=== PATIENT | female | born 1955 | race Caucasian/White ===

== ENCOUNTER 2023-02-04 14:39 | Outpatient (CLI) | payer MEDICARE, OTHER, SELFPAY ==
--- NOTE | 2023-02-04 14:47 | MR_ITS ---
WS: [id number] MRI LUMBAR SPINE NONCONTRAST HISTORY: LUMBAR BACK PAIN WITH RADICULOPATHY AFFECTING THE LEFT LEG COMPARISON: None available. TECHNIQUE: Sagittal and axial multisequence imaging is submitted. Moderate increase in thoracic kyphosis. Normal lumbar alignment with no compression fractures or marrow edema. Mild disc desiccation and narrowing throughout the lumbar spine, most significant at L5-S1. No fractu re. Conus terminates normally at L1. L1-L2: Mild annular disc bulging. No stenosis. L2-L3: Mild annular disc bulge. Annular fissure centrally. Mild ligamentum flavum and facet arthritis . L3-L4: Mild annular disc bulge with encroachment upon the subarticular recesses. Mild bilateral camryn inal narrowing. L4-L5: Moderate ligamentum flavum and mild facet arthritis. Facet cyst on the LEFT. There is very mil d encroachment centrally upon the thecal sac by facet disease. Mild central and bilateral subarticula r recess and foraminal stenosis. L5-S1: Mild annular disc bulge with a moderate central disc protrusion. Mild encroachment upon the ve ntral thecal sac. There is mild disc contact on the traversing RIGHT S1 nerve root. Mild facet and li gamentum flavum disease. Bilateral renal cysts. MR/MR lumbar spine wo con* [id number] IMPRESSION: 1. Moderate central disc protrusion at L5-S1 with disc contacting the traversi ng RIGHT S1 nerve root. 2. Mild disc encroachment upon the subarticular recesses and mild foraminal na rrowing at L3-4. 3. Mild central, bilateral subarticular recess and foraminal stenosis at L4-5.
== END 2023-02-04 14:40 | disposition home or self-care (01) ==
PROVIDERS: PCP Internal Medicine; Visit Provider Internal Medicine
DX: M54.16 Radiculopathy, lumbar region (principal); M48.061 Spinal stenosis, lumbar region without neurogenic claudication; M51.27 Other intervertebral disc displacement, lumbosacral region
CPT/HCPCS: 72148

== ENCOUNTER → 2023-02-20 15:27 | Outpatient (BNVA) | payer MEDICARE, OTHER, SELFPAY | PROVIDERS: PCP Internal Medicine; Referring Provider Internal Medicine; Visit Provider Orthopaedic Surgery | DX: M48.062 Spinal stenosis, lumbar region with neurogenic claudication (principal); M51.26 Other intervertebral disc displacement, lumbar region | CPT/HCPCS: 72110; 99204 ==

== ENCOUNTER 2023-02-28 13:17 | Outpatient (CLI) | payer MEDICARE, OTHER, SELFPAY | END 2023-02-28 13:18 | disposition home or self-care (01) | LOC: RT 03-19 13:20 | PROVIDERS: PCP Internal Medicine; Visit Provider Orthopaedic Surgery | DX: Z01.818 Encounter for other preprocedural examination (principal) | CPT/HCPCS: 93005 ==

== ENCOUNTER 2023-03-07 09:03 | Day surgery (SDC) | payer MEDICARE, OTHER, SELFPAY ==
[2023-02-28 09:33] VITALS: BMI 24.3
--- NOTE | 2023-02-28 09:42 | ECG_ITS ---
[facility] Test Date: 2023-02-28 Pat Name: Martita Spencer Department: Room: Gender: Female Analytics Consultant: : 1955 Requested By: Hortencia Kapoor Order Number: [id number] Tyra MD: Lizzy Mcmillan M.D. Measurements Intervals [place] Rate: 57 P: 73 [place]: 131 QRS: 25 QRSD: 86 T: 50 QT: 416 QTc: 406 Interpretive Statements SINUS BRADYCARDIA SEPTAL MYOCARDIAL INFARCTION [40+ ms Q WAVE IN V1/V2], PROBABLY OLD MODERATE T-WAVE ABNORMALITY, CONSIDER LATERAL ISCHEMIA [-0.1+ mV T WAVE IN I/aVL/V5/V6] INTERPRETATION BASED ON A DEFAULT AGE OF 40 YEARS No previous ECG available for comparison Electronically Signed On 02-28-2023 22:22:02 CDT by Lizzy Mcmillan M.D. [id number]
--- NOTE | 2023-02-28 09:51 | ANES.PREANE2 ---
Pre-Anesthetic Assessment Height/Weight: Height 1.57 m Weight 60.328 kg Operation Date: 03/07/23 13:00 Proposed Procedures p Lumbar Spine Decompression:L4/5 L5/S1 decompression w discetomy at L5/S1, 51986,94919,24098,M48.062.(Not Applicable) - Galen Leung DO s Discectomy: L5/S1 36295(Not Applicable) - Galen Leung DO Familial anesthetic complications: None Social Tobacco and No alcohol Exam alert, oriented x 3, clear to auscultation bilaterally and regular rate & rhythm Airway Mallampati: Class II Dentition: other (plate) Pulmonary None reported CV/HEM Coronary Artery Disease (stent > 1 year ago on plavix still), Hypertension, Myocardial Infarction and Peripheral Vascular Disease None reported Hepatic None reported GI Gastroesophageal Reflux Disease Metabolic Hyperlipidemia Musc/skel Lower Back Pain Neuropsych None reported Anesthetic Plan ASA status: 3 Anesthesia: General Risk of > 500 ml blood loss (7ml/kg in children): No Medications/Allergies Home Medications Medication Instructions Recorded Confirmed Last Taken Type aspirin 81 mg capsule 81 mg PO DAILY 02/20/23 02/28/23 02/27/23 History clopidogrel 75 mg tablet (Plavix) 75 mg PO DAILY 02/20/23 02/28/23 02/27/23 History albuterol sulfate 90 mcg/actuation 1 inh inhalation QID PRN Shortness 02/28/23 02/28/23 Unknown History aerosol inhaler Of Breath citalopram 40 mg tablet 20 mg PO DAILY 02/28/23 02/28/23 02/28/23 History hydrocodone 5 mg-acetaminophen 325 1 tab PO Q6H PRN Pain 02/28/23 02/28/23 02/28/23 History mg tablet labetalol 200 mg tablet 200 mg PO DAILY 02/28/23 02/28/23 02/28/23 History omeprazole 20 mg capsule,delayed 20 mg PO DAILY 02/28/23 02/28/23 02/28/23 History release rosuvastatin 40 mg tablet 40 mg PO DAILY 02/28/23 02/28/23 02/27/23 History zolpidem 10 mg tablet 10 mg PO DAILY 02/28/23 02/28/23 02/27/23 History Allergies Allergy/AdvReac Type Severity Reaction Status Date / Time Penicillins Allergy Intermediate ALGY-Hives Verified 02/20/23 15:54 trazodone Allergy ALGY-Hives Verified 02/20/23 15:54 Data Anesthesia 02/28/23 09:44 Cardiac Studies: No Data to Display
[2023-02-28 09:52] LABS: Basophils % 0.4 %; Eosinophils # 0.2 10^3/uL (0.0-0.8); Eosinophils % 3.2 %; Hematocrit 28.6 % (37.0-47.0); Hemoglobin 8.2 g/dL (11.5-15.3); Lymphocytes # 1.1 10^3/uL (0.8-4.8); Lymphocytes % 21.9 %; Mean Corpuscular HGB Conc 28.7 g/dL (30.0-36.0); Mean Corpuscular Hemoglobin 26.8 pg (28.0-34.0); Mean Corpuscular Volume 93.5 fl (81-99); Mean Platelet Volume 10.7 fL (7.4-10.4); Monocytes # 0.3 10^3/uL (0.2-0.9); Monocytes % 6.1 %; Neutrophils # 3.35 10^3/uL (1.8-7.7); Nucleated Red Blood Cells % 0 %; Platelet Count 189 10^3/cmm (130-400); Red Blood Count 3.06 10^6/uL (4.1-5.3); Red Cell Distribution Width 14.8 % (12.1-15.1); White Blood Count 4.9 10^3/uL (4.0-10.0)
[2023-03-07] VITALS (10 sets, daily range): BP systolic 113–182; BP diastolic 37–72; PULSE 63–81; RESP 16–18; TEMP 36.3–37.1; O2SAT 95–100
--- NOTE | 2023-03-07 09:53 | P.ANESUD_ITS ---
Pre-Anesthetic Update Pre-Anesthetic Assessment: Date of Surgery/Procedure: 03/07/23 Preop Ingrid gnosis: Lumbar stenosis, herniated nucleus pulposus L5-S1 Proposed Procedure: Operation Date: 03/07/23 10:30 Proposed Procedures p Lumbar Spine Decompression:L4/5 L5/S1 decompression w microdiscectomy at L5/S1, 34226,18011,23288,M48.062.(Left) - Galen Leung, DO s Discectomy: L5/S1 31884(Left) - Galennick Leung, DO Any changes to Pre-Anesthetic Assessment?: No Last Intake: Intake Last Liquid Date 03/07/23 Last Liquid Time 06:00 Last Solid Date 03/06/23 Last Solid Time 18:00 Vitals: Temperature 97.4 F L 03/07/23 09:21 Pulse Rate 63 03/07/23 09:21 Respiratory Rate 18 03/07/23 09:21 Blood Pressure 113/57 03/07/23 09:21 Blood Pressure Isabelle n 75 03/07/23 09:21 Pulse Oximetry 95 03/07/23 09:21 Oxygen Delivery Me thod Room Air 03/07/23 09:22 Exam: Pre-Anes Outpt Exam: alert, oriented x 3, clear to auscultation bilaterally and regular rate & rhythm Cardiac Studies: No Data to Display
[2023-03-07] MEDS: sodium chloride 0.9% 1,000 ML 30 ML IV (10:06)
--- NOTE | 2023-03-07 11:00 | W.PM.OPSUD ---
Surgery/Procedure H&P Update DATE OF PROCEDURE: March 07, 2023 DATE H&P PERFORMED: 02/20/23 H&P UPDATE INFORMATION: I have reviewed H&P completed within last 30 days, I have examined patient prior to procedure and No changes to prior documentation PREOP DIAGNOSIS: Lumbar stenosis, herniated nucleus pulposus L5-S1 PLANNED PROCEDURE: Operation Date: 03/07/23 10:30 Proposed Procedures p Lumbar Spine Decompression:L4/5 L5/S1 decompression w microdiscectomy at L5/S1, 31391,55987,90739,M48.062.(Left) - Galen Leung DO s Discectomy: L5/S1 10767(Left) - Galen Leung DO
[2023-03-07] MEDS: clindamycin 600 MG/50 ML PREMIX 100 MG IV (11:29)
[2023-03-07] MEDS: lidocaine-epi 1% 20 mL INJ 10 ML INJECTION (11:52)
--- NOTE | 2023-03-07 12:44 | XR_ITS ---
WS: [id number] Exam: XR lumbar spine 2-3V* [id number] Date/Time of Exam: 03/07/2023 12:44 PM Reason For Exam: OR PICS Limited anterior-posterior C-arm image of the lower spine is obtained for localization purposes.
--- NOTE | 2023-03-07 13:28 | P.OP_ITS ---
Operative Report Date of procedure: March 07, 2023 Pre-op diagnosis: Preop Diagnosis Lumbar stenosis with neurogenic claudication , herniated nucleus pulposus L5- S1 Post-op diagnosis: same Procedure done: 1. L4/5 laminectomy with partial facetectomy 2. L5/S1 laminectomy with partial facetectomy and diskectomy Surgeon: Galen Leung Cathode Builder: Robb Reis Estimated blood loss (mL): 25 Procedure: 1. L4/5 laminectomy with partial facetectomy 2. L5/S1 laminectomy with partial facetectomy and diskectomy Patient is brought to the operative suite. After undergoing anesthesia they are placed in the prone position. All areas of impingement are well padded. Patient is then prepped and draped in the normal sterile fashion. A skin incision is made over the L4/5 level. This is confirmed under c-arm guidance. A series of dilators are passed and the tubular retractor is docked on the L4 lamina. A bovie is used to clear the soft tissue off the lamina and the L 4/5 facet joint. A high speed don is then used to perform the laminectomy and take down the medial aspect of the L 4/5 facet joint. A kerrison rongeure was then used to take down the remaining lamina and smooth the edge of the laminectomy up to the point where the ligamentum flavum attaches. Attention was then brought to the medial aspect of the facet joint. The remaining medial aspect of the superior and inferior aspect of the facet joint were taken down with the kerrison from the pedicle of L4 to L 5. The facet joint had significant hypertrophy. Attention was then brought to the Ligamentum Flavum. The ligament was taken down from the lamina of L4 to L5 and out medially to the remaining facet joint. The ligament was thick. The dura was then exposed. The dura was in good repair. The L4 nerve was then traced with a curette out the L4/5 foramen and found to be adequately decompressed. The L5 nerve was traced with a curette around the L5 pedicle. The lateral recess was opened with a kerrison helping to further decompress the L5 nerve. Wound is then irrigated copiously with saline and surgiflo is used to stop any bleeding. The tubular retractor is removed and the A skin incision is made over the L5/S1 level. This is confirmed under c-arm guidance. A series of dilators are passed and the tubular retractor is docked on the L5 lamina. A bovie is used to clear the soft tissue off the lamina and the L 5/S1 facet joint. A high speed don is then used to perform the laminectomy and take down the medial aspect of the L 5/S1 facet joint. A kerrison rongeure was then used to take down the remaining lamina and smooth the edge of the laminectomy up to the point where the ligamentum flavum attaches. Attention was then brought to the medial aspect of the facet joint. The remaining medial aspect of the superior and inferior aspect of the facet joint were taken down with the kerrison from the pedicle of L5 to S1 able to. The facet joint had significant hypertrophy. Attention was then brought to the Ligamentum Flavum. The ligament was taken down from the lamina of L5 to S1 and out medially to the remaining facet joint. The ligament was thick. The dura was then exposed. The dura was in good repair. The L5 nerve was then traced with a curette out the L5/S1 foramen and found to be adequately decompressed. The S1 nerve was traced with a curette around the S1 pedicle. The lateral recess was opened with a kerrison helping to further decompress the S1 nerve. Wound is then irrigated copiously with saline and surgiflo is used to stop any bleeding. The tubular retractor is removed and the wound is closed with vicryl and monocryl suture. Glue is then used to protect the wound. A sterile dressing is then placed. Patient was then placed in the supine position and transferred to the PACU in stable condition.
[2023-03-07] MEDS: HYDROcodone-acetaminophen 5-325 mg Tablet 1 TAB PO (13:42)
--- NOTE | 2023-03-07 15:14 | ANE.PACU2 ---
Inpatient post-anesthesia follow up: Airway intact: Yes Vital signs: Temperature 98.7 F Pulse Rate 76 Respiratory Rate 16 Blood Pressure 150/51 Pulse Oximetry 96 Oxygen Delivery Me thod Room Air Oxygen Flow Rate 8 Fraction of Inspir ed Oxygen Hydration adequate: Yes Nausea and vomiting: No Pain level: 3 Mental status: Baseline
== END 2023-03-07 14:18 | disposition home or self-care (01) ==
PROVIDERS: Anesthesiology; PCP Internal Medicine; Visit Provider Orthopaedic Surgery
PROC: (CPT 63005; principal; 2023-03-07 10:20)
PROC: (CPT 63030; 2023-03-07 10:20)
DX: M48.062 Spinal stenosis, lumbar region with neurogenic claudication (principal); I25.10 Atherosclerotic heart disease of native coronary artery without angina pectoris; I10 Essential (primary) hypertension; E78.5 Hyperlipidemia, unspecified; I73.9 Peripheral vascular disease, unspecified; K21.9 Gastro-esophageal reflux disease without esophagitis; Z79.02 Long term (current) use of antithrombotics/antiplatelets; Z79.82 Long term (current) use of aspirin; Z79.899 Other long term (current) drug therapy; Z95.5 Presence of coronary angioplasty implant and graft; Z88.0 Allergy status to penicillin
CPT/HCPCS: 63030; 63047; 36415; 72020; 72100; 76000; 85025; J0330; J1100; J2405; J2704; J2710; J3010; J3490; J7030

== ENCOUNTER → 2023-03-25 11:09 | Outpatient (BNVA) | payer MEDICARE, OTHER, SELFPAY | PROVIDERS: PCP Internal Medicine; Visit Provider Orthopaedic Surgery | DX: Z47.89 Encounter for other orthopedic aftercare (principal) | CPT/HCPCS: 99024 ==

== ENCOUNTER → 2023-04-22 11:07 | Outpatient (BNVA) | payer MEDICARE, OTHER, SELFPAY | PROVIDERS: PCP Internal Medicine; Visit Provider Orthopaedic Surgery | DX: Z48.89 Encounter for other specified surgical aftercare (principal) | CPT/HCPCS: 99024 ==

== ENCOUNTER → 2023-05-06 08:48 | Outpatient (BNVA) | payer MEDICARE, OTHER, SELFPAY | PROVIDERS: PCP Internal Medicine; Visit Provider Orthopaedic Surgery | DX: Z48.89 Encounter for other specified surgical aftercare (principal) | CPT/HCPCS: 99024 ==

== ENCOUNTER 2023-05-07 14:15 | Outpatient (CLI) | payer MEDICARE, OTHER, SELFPAY ==
--- NOTE | 2023-05-07 14:30 | MR_ITS ---
WS: [id number] MRI LUMBAR SPINE NONCONTRAST TECHNIQUE: Sagittal T1, T2 and STIR imaging. Axial T1 and T2 imaging. CLINICAL INFORMATION: post operative increased weakness/fall COMPARISON: MRI February 04, 2023 FINDINGS: Mild lumbar curve. No acute compression. Slight retrolisthesis L2 on L3 and L3 on L4. Interval LEFT h emilaminectomy. L1-L2: Mild annular bulging. Mild facet arthropathy. Spinal canal and foramen are patent. L2-L3: Slight retrolisthesis. Mild annular bulging with narrowing of the subarticular recess bilatera lly. Mild facet arthropathy. Foramen are patent. L3-L4: Mild annular bulging with narrowing of the LEFT subarticular recess. Mild central canal stenos is. Moderate facet arthropathy. Mild to moderate LEFT and mild RIGHT foraminal narrowing. Slight cont act of the exiting LEFT L3 nerve root. L4-L5: Mild annular bulging. Slight effacement of ventral thecal sac. Slight contact of the traversin g L5 nerve roots. Mild LEFT foraminal narrowing. Moderate facet arthropathy. L5-S1: Interval LEFT laminectomy with partial discectomy. Granulation tissue in the RIGHT subarticula r recess. Spinal canal and foramen are patent. Moderate facet arthropathy. Bilateral renal cysts. Partially visualized aortic endograft. MR/MR lumbar spine wo con* [id number] IMPRESSION: 1. Postoperative changes LEFT L5-S1 hemilaminectomy. Granulation tissue in the RIGHT subarticular recess with slight contact of the RIGHT S1 nerve root. Mike mmend correlation for RIGHT S1 nerve root symptoms. No evidence of recurrent di sc extrusion. 2. Mild central canal stenosis L3-L4 with impingement on the traversing LEFT g reater than RIGHT L4 nerve roots. This appears slightly progressed. 3. LEFT foraminal protrusion L3-L4 impinges the exiting LEFT L3 nerve root wit h mild to moderate LEFT foraminal narrowing. This appears slightly progressed c ompared to previous. 4. Moderate facet arthropathy L3-L5.
== END 2023-05-07 14:16 | disposition home or self-care (01) ==
LOC: RAD 14:20
PROVIDERS: PCP Internal Medicine; Visit Provider Orthopaedic Surgery
DX: Z48.89 Encounter for other specified surgical aftercare (principal); M48.062 Spinal stenosis, lumbar region with neurogenic claudication; M47.896 Other spondylosis, lumbar region
CPT/HCPCS: 72148

== ENCOUNTER → 2023-05-20 15:45 | Outpatient (BNVA) | payer MEDICARE, OTHER, SELFPAY | PROVIDERS: PCP Internal Medicine; Visit Provider Physician Assistant | DX: Z98.890 Other specified postprocedural states (principal); M51.36 Other intervertebral disc degeneration, lumbar region | CPT/HCPCS: 99024 ==

== ENCOUNTER → 2023-06-17 10:33 | Outpatient (BNVA) | payer MEDICARE, OTHER, SELFPAY | PROVIDERS: PCP Internal Medicine; Visit Provider Physician Assistant | DX: R25.1 Tremor, unspecified (principal); M51.36 Other intervertebral disc degeneration, lumbar region; Z98.890 Other specified postprocedural states | CPT/HCPCS: 99213 ==

== ENCOUNTER → 2023-10-14 07:57 | Outpatient (BNVA) | payer MEDICARE, OTHER, SELFPAY | PROVIDERS: PCP Internal Medicine; Referring Provider Physician Assistant; Visit Provider Specialist | DX: G25.0 Essential tremor (principal); F17.210 Nicotine dependence, cigarettes, uncomplicated; R63.4 Abnormal weight loss; Z68.22 Body mass index [BMI] 22.0-22.9, adult | CPT/HCPCS: 99204 ==

== ENCOUNTER 2023-12-12 11:54 | Outpatient (CLI) | payer MEDICARE, OTHER, SELFPAY ==
--- NOTE | 2023-12-12 12:02 | USCV_ITS ---
Martita Spencer Age: 68 Gender: F : 1955 Exam Date: 12/12/2023 12:35 Ordering Phys: Nirav Ordaz MD Technologist: PHYLLIS Exam Location: [facility] Indication: EVAL FOR STENOSIS Risk Factors: Previous Vascular Surgery: Right Brachial BP: / Left Brachial BP: / Right Left Velocity (cm/s) Spectral Plaque Velocity (cm/s) Spectral Plaque Syst/Diast Broadening Syst/Diast Broadening 81.00/ 7.10 Prox CCA 59.00 / 18.60 51.50/ 7.40 Mid CCA 113.60/ 28.20 44.90/ 6.60 Distal CCA 84.70 / 29.00 / Prox ICA 82.90 / 22.20 / Mid ICA 88.90 / 27.30 / Distal ICA 70.10 / 23.10 91.20 ECA 212.30 ICA/CCA 0.78 Antegrade Vertebral Antegrade 65.30/ 22.50 cm/s 59.00/ 10.30 cm/s Tri Subclavian Bi 231.9 146.9 0 0 FINDINGS Comparison: none available. Complete occlusion of the right ICA, dense plaque beginning in the bifurcation. Mild plaque left bifurcation, no stenosis. Antegrade vertebral arteries. CONCLUSIONS Complete occlusion right ICA. Left ICA stenosis < 50%. Dr. Kaitlin Acosta DO (Electronically Signed) Final Date: 13 December 2023 16:49 S
== END 2023-12-12 11:55 | disposition home or self-care (01) ==
LOC: RAD 11:55
PROVIDERS: PCP Internal Medicine; Visit Provider Internal Medicine
DX: I65.23 Occlusion and stenosis of bilateral carotid arteries (principal)
CPT/HCPCS: 93880

== ENCOUNTER 2025-10-01 08:18 | Emergency (ER) | payer MEDICARE, OTHER, SELFPAY ==
--- OUTSIDE RECORDS SUMMARY | 2025-08-08 02:00 | XMS_ITS ---
Author Organization [facility] Address [address] [place] [address] Care Team Providers Care Entry Manager Name Role Phone Omar Ordaz Primary Care Provider Alexys June Unavailable [phone] Mahesh García Unavailable [phone] REASON FOR VISIT OP 0630 - Endovascular treatment of the bilateral iliacs, left femoral stick, possible brachial access (3-4 week f/u unless brachial cutdown was done) Encounters Encounter Location Date Provider Diagnosis [facility] [address] [place] [address] 08/08/2025 Mahesh García Plan Of Treatment Next Appt Details Provider Name:Alexys reddy, 10/03/2025 01:15:00 PM, [address] [place] [address] [address], [place], [address], Provider Name:Omar Ordaz, 10/05/2025 01:20:00 PM, [address], [place], [address], Provider Name:Omar Ordaz, 01/04/2026 01:20:00 PM, [address], [facility] [place], [address], Provider Name:Mahesh carmona, 07/03/2026 12:30:00 PM, [address] [place] [address] [address], [place], [address], Provider Name:Linn Hillman kirk, 07/03/2026 01:15:00 PM, [address] [place] [address] [address] [place], [address], Progress Notes * Martita SPENCER EDOB: 4 (70 yo F)Acc No.[id number]:08/08/2025 Patient: Martita Zhong Provider: Jhony García MD :1955 A ge:70 Y S ex:Female Date:08/08/2025 Address:[address] [place], [place] [id number] Pcp:Omar Ordaz Billing Information: * Procedure Codes: * Electronic signature of Joseph García MD on 10/01/2025 at 08:24 AM [employer] Sign off status: Pending * Provider: Jhony García MD Date: 0 08/08/2025 Generated for Daija edge/Erin/Scoutsmitting on: 1 12/01/2024 08:24 AM [employer]
--- OUTSIDE RECORDS SUMMARY | 2025-09-22 03:20 | XMS_ITS ---
Author Organization [facility] Address [address] [place] [address] Care Team Providers Care Allergy Physician Name Role Phone Omar Ordaz Primary Care Provider [phone] Alexys June [phone] Allergies Allergen (clinical drug ingredient) Drug/Non Drug Allergy documented on EMR Reaction Allergy Type Onset Date Status Penicillin Unknown Drug Allergy Active trazodone Trazodone Unknown Drug Allergy Active REASON FOR VISIT [facility] follow up, Pt is in need of completion of a Functional Status Assessment, Pt is in need of completion of a Functional Status Assessment, document under Preventative Medicine> screenings> care for older adults (FSA) Medications Medication SIG (Take, Route, Frequency, Duration) Notes Start Date End Date Status Aspirin 81 81 MG Tablet Delayed Release 1 tablet Orally Once a day Active HYDROcodone-Acetaminophen 5-325 MG Tablet TAKE ONE TABLET BY MOUTH EVERY 6 HOURS NEEDED FOR 30 DAYS; Duration: 30 09/01/2025 Active Vitamin B12 TR 2000 MCG Tablet Extended Release 1 tablet Orally Once a day Active Labetalol HCl 100 MG Tablet 1 tablet Orally Twice a day; Duration: 90 days Active Furosemide 20 MG Tablet 1 tablet Orally Once a day; Duration: 30 day(s) 09/22/2025 10/22/2025 Active Clopidogrel Bisulfate 75 MG Tablet 1 tablet Orally Once a day; Duration: 90 days Active Citalopram Hydrobromide 40 MG Tablet 0.5 tablet Orally Once a day; Duration: 90 days Active Zolpidem Tartrate 10 mg Tablet TAKE ONE TABLET BY MOUTH At Bedtime FOR 30 DAYS; Duration: 30 07/12/2025 Active Omeprazole 20 MG Capsule Delayed Release 1 capsule 30 minutes before morning meal Orally Once a day; Duration: 90 days Active Crestor 40 MG Tablet TAKE ONE TABLET BY MOUTH EVERY DAY; Duration: 90 Active Ferrous Gluconate 324 (38 Fe) MG Tablet 1 tab Orally bid; Duration: 30 days 07/16/2023 Active Vitamin D3 50 MCG (2000 UT) Capsule 1 capsule Orally Once a day; Duration: 90 days Active amLODIPine Besylate 2.5 MG Tablet 1 tablet Orally Once a day; Duration: 90 days Active ProAir HFA 108 (90 Base) MCG/ACT Aerosol Solution 1 puff as needed Inhalation every 4 hrs; Duration: 90 days Active Primidone 50 MG Tablet 1 tablet Orally O nce a day Active Social History Tobacco Use: Social History Observation Description Date Details (start date - stop date) Current Smoker NA - NA Social History Tobacco Use: Social Info Question Answer Notes Tobacco Control (Standard) Tobacco use: Current smoker How often do you smoke cigarettes? Every day How many cigarettes a day do you smoke? - Section Notes: PHQ9 - 09/07/24 Tob - 09/07/24 CIME Dep/Tob 04/20/25 Smoked for about 40+ years Vital Signs Temperature 98.0 degrees Fahrenheit 09/22/20 25 Blood pressure systolic 110 mm Hg 09/22/20 25 Blood pressure diastolic 54 mm Hg 025 Heart Rate 46 /min 09/22/2025 Height 62 in 09/22/2025 Weight 136 lbs 09/22/2025 BMI 24.87 kg/m2 09/22/2025 Oximetry 97 % 09/22/2025 Height-cm 157.48 cm 09/22/2025 Weight-kg 61.69 kg 09/22/2025 Encounters Encounter Location Date Provider Diagnosis [facility] [address] [place] [id number] 09/22/2025 Omar Ordaz PVD (peripheral vascular disease) I73.9 ; Coronary artery disease involving iroquois coronary artery of iroquois heart without angina pectoris I25.10 ; Essential hypertension I10 and Lumbar back pain with radiculopathy affecting left lower extremity M54.16 Assessments Encounter Date Diagnosis (ICD Code) Assessment Notes Treatment Notes Treatment Clinical Notes Section Notes 09/22/2025 PVD (peripheral vascular disease) (ICD-10 - I73.9) She claims that her wound from her recent angiogram is leaking. I have no recourse. I will try and get her in to see Vascular soon. 09/22/2025 Coronary artery disease involving iroquois coronary artery of iroquois heart without angina pectoris (ICD-10 - I25.10) 09/22/2025 Essential hypertension (ICD-10 - I10) 09/22/2025 Lumbar back pain with radiculopathy affecting left lower extremity (ICD-10 - M54.16) Plan Of Treatment Medication Medication Name Sig Start Date Stop Date Notes Furosemide 20 MG Tablet 1 tablet Orally Once a day; Duration: 30 day(s) 09/22/2025 10/22/2025 Treatment Notes Assessment Notes PVD (peripheral vascular disease) She cl aims that her wound from her recent angiogram is leaking. I have no recourse. I will try and get her in to see Vascular soon. Next Appt Details Follow Up: 2 Weeks, Reason: Provider Name:Alexys reddy, 10/03/2025 01:15:00 PM, [address] [place] [address] [address], [place], [phone], Provider Name:Omar Ordaz, 10/05/2025 01:20:00 PM, [address], [place], [address], Provider Name:Omar Ordaz, 01/04/2026 01:20:00 PM, [address], [place], [address], Provider Name:Mahesh carmona, 07/03/2026 12:30:00 PM, [address] [place] [address] [address], [place], [address], Provider Name:Linn bradley, 07/03/2026 01:15:00 PM, [address] [place] [address] [address], [place], [phone], Medications Administered Medication Instructions Date of Administration Dosage Notes Furosemide 40mg 09/22/2025 History and Physical Notes * HPI (History of Present Illness) Category Sub-Category Detail Notes Category Not es Interim History *Hospital Transition of care (inpatient/overnight stay) Date of admission to hospital:: 09/15/2025 Reason for admission:: Other (See Notes) Lower Extremity Arterial Occlusion Was this a readmission?: No Date of discharge from hospital:: 2024 Discharging Facility:: [facility] First Attempt at Contact:: Erasmo smith spoke with patient, family, or caregiver Date of First Attempt:: 09/21/2025 Discharge medications review ed and reconciled from hospital:: Medications to be reconciled with Health Care Provider at Follow Up Visit Does this patient meet any r isk criteria for potential readmission within 30-90 days? (_select all that apply): Admission triggered from Emergency Department, Multiple Chronic Conditions Date of receipt of hospital admission report:: 09/20/2025 Date of receipt of hospital discharge summary:: 09/21/2025 Examination Category Sub-Category Detail Notes Category Not es Examination GENERAL APPEARANCE: Awake/alert. No appar ent distress HEART: Regular rate and rhy thm without rubs, murmurs, or gallops. PMI nondisplaced ABDOMEN: Soft, nontender, non distended with active bowel sounds X4. 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 N o D ate of discharge from hospital: 11/18/2024 D ischarging Facility: [facility] irst Attempt at Contact: Erasmo smith spoke with patient, family, or caregiver D ate of First Attempt: 11/21/2024 D ischarge medications reviewed and reconciled from hospital: M edications to be reconciled with Health Care Provider at Follow Up Visit D oes this patient meet any risk criteria for potential readmission within 30-90 days? (_select all that apply) A dmission triggered from Emergency Department, Multiple Chronic Conditions D ate of receipt of hospital admission report:?09/20/2025 D ate of receipt of hospital discharge summary: 11/21/2024 P atient Complaints: [facility] follow up- stent in L leg- pt states it is leaking, even with it having stitches and being glued shut- swelling in both legs. * ROS: G eneral/Constitutional: Patient denies f atigue , fever , night sweats. ? H ematology: Patient denies e asy bruising , bleeding problems , recent transfusion. R espiratory: Patient denies c ough , shortness of breath , wheezing.? C ardiovascular: Patient denies c hest pain , irregular heartbeat , swelling in hands/feet. G astrointestinal: Patient denies a bdominal pain, bloating , constipation , diarrhea , heartburn , blood in stool , nausea , vomiting. G enitourinary: Patient denies p ainful urination , blood in the urine , difficulty urinating. E NT: Patient denies e ar pain , nosebleed, runny nose, s ore throat. M usculoskeletal: Patient denies a rthritis\arthralgia , back pain , joint stiffness , muscle aches. S kin: Patient denies s kin lesion(s) , rash , acne. ? N eurologic: Patient denies d izziness , fainting , headache , memory loss , seizures. P sychiatric: Patient denies a nxiety , depressed mood , difficulty sleeping , suicidal thoughts. B [facility]- LEGS SWELLING AND DRAINAGE FROM SURGERY SITE. * Medical History: Coronary artery disease Tremors Medical History Verified * Surgical History: stent in heart stent in carodid stents in left leg Surgical History verified. * Family History: F ather: , Heart failure. M other: , hypertension. F amily History Verified.. hypertesion. * Social History: T obacco Use: T obacco Control (Standard) T obacco use: C urrent smoker H ow often do you smoke cigarettes? E very day H ow many cigarettes a day do you smoke? 2 1-30 S ocial History Verified. P HQ9 - 09/07/24 Tob - 09/07/24 CIME Dep/Tob 04/20/25 Smoked for about 40+ years. * Medications: T akingVitamin B12 TR 2000 MCG Tablet Extended Release 1 tablet Orally Once a day Aspirin 81 81 MG Tablet Delayed Release 1 tablet Orally Once a day Primidone 50 MG Tablet 1 tablet Orally Once a day ProAir HFA 108 (90 Base) MCG/ACT Aerosol Solution 1 puff as needed Inhalation every 4 hrs Vitamin D3 50 MCG (2000 UT) Capsule 1 capsule Orally Once a day Ferrous Gluconate 324 (38 Fe) MG Tablet 1 tab Orally bid amLODIPine Besylate 2.5 MG Tablet 1 tablet Orally Once a day Citalopram Hydrobromide 40 MG Tablet 0.5 tablet Orally Once a day Clopidogrel Bisulfate 75 MG Tablet 1 tablet Orally Once a day Crestor 40 MG Tablet TAKE ONE TABLET BY MOUTH EVERY DAY Omeprazole 20 MG Capsule Delayed Release 1 capsule 30 minutes before morning meal Orally Once a day Zolpidem Tartrate 10 mg Tablet TAKE ONE TABLET BY MOUTH At Bedtime FOR 30 DAYS HYDROcodone-Acetaminophen 5-325 MG Tablet TAKE ONE TABLET BY MOUTH EVERY 6 HOURS NEEDED FOR 30 DAYS Labetalol HCl 100 MG Tablet 1 tablet Orally Twice a day Medication List reviewed and reconciled with the patientTaking Vitamin B12 TR 2000 MCG Tablet Extended Release 1 tablet Orally Once a day Taking Aspirin 81 81 MG Tablet Delayed Release 1 tablet Orally Once a day Taking Primidone 50 MG Tablet 1 tablet Orally Once a day Taking ProAir HFA 108 (90 Base) MCG/ACT Aerosol Solution 1 puff as needed Inhalation every 4 hrs Taking Vitamin D3 50 MCG (2000 UT) Capsule 1 capsule Orally Once a day Taking Ferrous Gluconate 324 (38 Fe) MG Tablet 1 tab Orally bid Taking amLODIPine Besylate 2.5 MG Tablet 1 tablet Orally Once a day Taking Citalopram Hydrobromide 40 MG Tablet 0.5 tablet Orally Once a day Taking Clopidogrel Bisulfate 75 MG Tablet 1 tablet Orally Once a day Taking Crestor 40 MG Tablet TAKE ONE TABLET BY MOUTH EVERY DAY Taking Omeprazole 20 MG Capsule Delayed Release 1 capsule 30 minutes before morning meal Orally Once a day Taking Zolpidem Tartrate 10 mg Tablet TAKE ONE TABLET BY MOUTH At Bedtime FOR 30 DAYS Taking HYDROcodone-Acetaminophen 5-325 MG Tablet TAKE ONE TABLET BY MOUTH EVERY 6 HOURS NEEDED FOR 30 DAYS Taking Labetalol HCl 100 MG Tablet 1 tablet Orally Twice a day Medication List reviewed and reconciled with the patient * Allergies: P enicillin - Criticality UnknownTrazodone - Criticality UnknownyesAllergies Verified. Objective: * Vitals: H t: 62 in, Wt:136lbs, Wt-k.69 kg, BMI:24.87Index, Temp:98.0F, BP:110/54mm Hg, HR:46/min, Oxygen sat %:97%, O2 Source: RA, Pain scale: 9 1-10, Ht-cm: 157.48 cm. * Examination: E xamination: GENERAL APPEARANCE: A wake/alert. No apparent distress.? HEART: R egular rate and rhythm without rubs, murmurs, or gallops. PMI nondisplaced. LUNGS: C lear to auscultation without rales, rhonchi, wheezing, tachypnea or air hunger. ABDOMEN: S oft, nontender, nondistended with active bowel sounds X4. No HSM or masses. Assessment: * Assessment: 1. P VD (peripheral vascular disease) - I73.9 (Primary) 2 . C oronary artery disease involving iroquois coronary artery of iroquois heart without angina pectoris - I25.10 ? 3 . E ssential hypertension - I10 4 . L umbar back pain with radiculopathy affecting left lower extremity - M54.16 Plan: * Treatment: * Therapeutic Injections: Furosemide 40mg (Route: Intramuscular) given by Sherrell Walters on right hip (PVD (peripheral vascular disease)) * Procedure Codes: 9 6372 Dupilumab (Dupixent) - Pt [id number] AMNT PAIN NOTED PAIN [id number] SYST BP LT 130 MM [id number] DIAST BP < 80 MM [id number] DSCHRG MED/CURRENT MED [id number] CURRENT TOBACCO [id number] MED LIST DOCD IN [id number] RVW MEDS BY RX/DR IN [id number] FALL RISK ASSESSMENT [id number] PT FALLS ASSESS-DOC'D LE1/UN1825T FXNL STATUS [id number] COLORECTAL CA SCREEN DOC REV * Preventive Medicine: Fall Risk Assessment: F all Risk Assessment Fall Risk Assessment N o falls in the past year Screenings: B REAST CANCER SCREENING: Date of most recent screenin years C ARE FOR OLDER ADULTS Functional Status C annot walk 200 ft with assistance device Function Status Assessment date 1 11/22/2024 C ERVICAL CANCER SCREENING: Date of the last PAP Smear : 7 years C OLORECTAL CANCER SCREENING: Date of last colonoscopy 1 0+ years D EPRESSION SCREENING: Date of most recent screenin V ACCINATIONS: Influenza vaccinations: h ave been completed yearly Received 09/08/25 P HQ9 - 09/07/24. * Follow Up: 2 Weeks Billing Information: * Visit Code: 81687 Office Visit, Est Pt., Level 3. Modifiers: 25 * Procedure Codes: 83361 Dupilumab (Dupixent) - Pt Supplied. 1125F AMNT PAIN NOTED PAIN PRSNT. 3074F SYST BP LT 130 MM HG. 3078F DIAST BP < 80 MM HG. 1111F DSCHRG MED/CURRENT MED MERGE. 1034F CURRENT TOBACCO SMOKER. 1159F MED LIST DOCD IN RD. 1160F RVW MEDS BY RX/DR IN [facility]. 3288F FALL RISK ASSESSMENT DOCD. 1101F PT FALLS ASSESS-DOC'D LE1/YR. 1170F FXNL STATUS ASSESSED. 3017F COLORECTAL CA SCREEN DOC REV. Care Plan Details* * Electronic signature of Alison Ordaz MD on 10/01/2025 at 08:25 AM ALARM INSTALLATION TECHNICIAN Sign off status: Pending * Provider: Macy Ordaz MD Date: 11/22/2024 Generated for Daija edge/Erin/Gamal on: 12/01/2024 08:25 AM ALARM INSTALLATION TECHNICIAN
[2025-10-01 08:19] VITALS: BP 221/137; PULSE 68; RESP 22; TEMP 36.8; O2SAT 98; BMI 24.8
--- OUTSIDE RECORDS SUMMARY | 2025-10-01 08:25 | XMS_ITS | Patient Health Record ---
Author Organization [facility] Address [address] [place] [address] Care Team Providers Care Hospital Aide Name Role Phone Omar Ordaz Primary Care Provider Alexys June Unavailable [phone] Mahesh García Unavailable [phone] Linn Argueta Unavailable [phone] Allergies Allergen (clinical drug ingredient) Drug/Non Drug Allergy documented on EMR Reaction Allergy Type Onset Date Status Penicillin Unknown Drug Allergy Active trazodone Trazodone Unknown Drug Allergy Active Results Component Value Reference Range Flag Notes Schedule Confirmation Reviewed date:05/02/2025 09:42:21 AM Interpretation: Performing Lab: Notes/Report: Schedule Confirmation Reviewed date:05/02/2025 09:42:23 AM Interpretation: Performing Lab: Notes/Report: Schedule Confirmation Reviewed date:05/02/2025 09:42:26 AM Interpretation: Performing Lab: Notes/Report: Schedule Confirmation Reviewed date:05/02/2025 09:42:28 AM Interpretation: Performing Lab: Notes/Report: NM Lexiscan Cardiolite US Doppler Scan Arterial LE Bilat-37184 Reviewed date:05/30/2025 02:15:54 PM Interpretation: Performing Lab: Notes/Report: See Below For Report US Doppler Scan Arterial LE Bilat Read See Below For Report US Carotid Doppler Bilateral -92521 Reviewed date:05/30/2025 02:15:54 PM Interpretation: Performing Lab: Notes/Report: See Below For Report US Carotid Doppler Bilateral Read See Below For Report Basic Metabolic Panel (BMP) 28627 (Not yet reviewed by provider) Interpretation: Performing Lab: Notes/Report: 4420 @ 2253 4420 @ 2253 Sodium 139 136-145 MMOL/L Potassium 5.4 3.5-5.1 MMOL/L HI Chloride 110 98-107 MMOL/L HI CO2 20.6 20.0-31.0 MMOL/L Glucose Serum 134 71-110 MG/DL HI Testing p erformed at [facility], [address] [place] [address] [place] [address]. CLIA ID#: [id number] BUN 27 7-21 MG/DL HI Creat 1.62 .51-1.17 MG/DL HI E-mwlqjk-k-benzoquino ne imine (NAPQI) is a metabolite of acetaminophen, NAPQI concentrations of apparoximately 10 mg/L correlation to toxic levels of acetaminophen demonstrates a greater than or equil to 10% change in results. NAPQI concentrations greater than this may lead to falsely depressed results for patient samples. Use of this assay is not recommended for patients undergoing treatment with phenindione, due to the potential for falsely depressed results. GFR 33.7 NA Calculation pe rformed from GFR calculator provided by the National Kid[employer]. Glomerular Filtration rate(GRF) is the best overall index of kidney function. Normal GFR varies according to age,sex, body size, and declines with age. The National Kidney Foundation recommends using the CKD-EPI Creatinine Equation(2020) to estimate GFR. Anion Gap 14 5-15 BUN/Creat Ratio 16.7 12.0-20.0 % Calcium 8.0 8.7-10.4 MG/DL LOW Osmo Serum,Calculated 295 280-300 MOSM/KG CBC w\o Diff 09216 (Not yet reviewed by provider) Interpretation: Performing Lab: Notes/Report: 4420 @ 2253 4420 @ 2253 WBC 7.8 4.5-11.0 X10'3 RBC 2.32 4.00-5.20 X10'6 LOW Hgb 7.2 12.0-16.0 G/DL LOW called [facility] and spoke to Theresa Polk RN. nurse confirmed patient has since had surgery. 09/17/2025 02:56:47 RBV/ Hct 22.8 36.0-46.0 % LOW called [facility] a nd spoke to Theresa Polk RN. nurse confirmed patient has since had surgery. 09/17/2025 02:56:47 RBV/MD MCV 98.3 80.0-100.0 FL MCH 31.0 27.0-31.0 PG MCHC 31.6 31.0-37.0 G/DL Platelet 171 150-400 X10'3 RDW-SD 47.4 35.0-49.0 FL RDW-CV 13.2 12.2-15.6 % MPV 10.8 9.2-12.0 FL US Ankle Brachial Pressure I ndex-25302 Reviewed date:07/04/2025 11:20:56 AM Interpretation: Performing Lab: Notes/Report: nik=[id number]&org=May POCT-ACT--NO CPT Reviewed date:08/11/2025 05:18:02 PM Interpretation: Performing Lab: Notes/Report: POCT-ACT 403 75-120 SEC HI Schedule Confirmation Reviewed date:07/19/2025 05:05:04 PM Interpretation: Performing Lab: Notes/Report: CTA AFRO w/ + w/o Contrast CTA AFRO w/ + w/o Contrast-7 5635 Reviewed date:07/25/2025 12:15:26 PM Interpretation: Performing Lab: Notes/Report: See Below For Report CTA AFRO w/ + w/o Contrast Please schedule for 07/19/25 by 3 PM or 07/21/25 late morning or early afternoon. Please perform with 1 mm slices. Patient will possibly need pre and post hydration. Read See Below For Report CTA AFRO w/ + w/o Contrast-7 5635 Reviewed date:07/19/2025 05:05:04 PM Interpretation: Performing Lab: Notes/Report: plb=[id number]&org=May Chest PA/Lat-27672 Reviewed date:08/11/2025 05:18:07 PM Interpretation: Performing Lab: Notes/Report: poj=[id number]&org=May CBC w\o Diff 76874 (Not yet reviewed by provider) Interpretation: Performing Lab: Notes/Report: PT off the floor in procedure 13:56 PT in PACU, missed both RT & LFT AC;s 14:40 LV 4420 @ 2253 4420 @ 2253 WBC 9.2 4.5-11.0 X10'3 RBC 3.20 4.00-5.20 X10'6 LOW Hgb 10.0 12.0-16.0 G/DL LOW Hct 31.6 36.0-46.0 % LOW MCV 98.8 80.0-100.0 FL MCH 31.3 27.0-31.0 PG HI MCHC 31.6 31.0-37.0 G/DL Platelet 183 150-400 X10'3 RDW-SD 46.8 35.0-49.0 FL RDW-CV 12.8 12.2-15.6 % MPV 10.5 9.2-12.0 FL PTT-Heparin--NO CPT (Not yet reviewed by provider) Interpretation: Performing Lab: Notes/Report: Order placed by Discern per Heparin Protocol. 44 @ 3 4420 @ 2253 PTT 30.2 22.6-31.8 SEC Therapeutic Range: 60-100. Critical Value Starting at > 100. Heparin Xa 0.23 NA ACCP recommendation for therapeutic dosage (Unfractionated heparin)*: 0.3 A? 0.7 IU/mL ACCP recommendation for target peak concentration (low molecular weight heparin)*: 0.60 A? 1.00 IU/mL *Refer to the recommendations made by the specific heparin sanitarian for heparin activity Treatment with direct oral anticoagulants which inhibit Factor Xa (apixaban (Eliquis), rivaroxaban (Xarelto), etc.) may cause results to be falsely elevated. Results of this assay should always be interpreted in conjunction with the patientA?s medical history. PRBC-LR--P9016 (Not yet revi ewed by provider) Interpretation: Performing Lab: Notes/Report: 44 @ 2252 4420 @ 2253 Number of Units 1 NA Product Type Blood Product NA CTA AFRO w/ + w/o Contrast-7 5635 (Not yet reviewed by provider) Interpretation: Performing Lab: Notes/Report: See Below For Report CTA AFRO w/ + w/o Contrast 4420 @ 2253 Read See Below For Report Basic Metabolic Panel (BMP) 05284 (Not yet reviewed by provider) Interpretation: Performing Lab: Notes/Report: 4420 @ 2253 4420 @ 2253 Sodium 140 136-145 MMOL/L Potassium 4.6 3.5-5.1 MMOL/L Chloride 111 98-107 MMOL/L HI CO2 20.4 20.0-31.0 MMOL/L Glucose Serum 128 71-110 MG/DL HI Testing p erformed at [facility], [address] [place] [address] [place] [address]. CLIA ID#: [id number] BUN 18 7-21 MG/DL Creat 1.70 .51-1.17 MG/DL HI M-lziroz-z-benzoquino ne imine (NAPQI) is a metabolite of acetaminophen, NAPQI concentrations of apparoximately 10 mg/L correlation to toxic levels of acetaminophen demonstrates a greater than or equil to 10% change in results. NAPQI concentrations greater than this may lead to falsely depressed results for patient samples. Use of this assay is not recommended for patients undergoing treatment with phenindione, due to the potential for falsely depressed results. GFR 32.0 NA Calculation pe rformed from GFR calculator provided by the National Kidney Foundation. Glomerular Filtration rate(GRF) is the best overall index of kidney function. Normal GFR varies according to age,sex, body size, and declines with age. The National Kidney Foundation recommends using the CKD-EPI Creatinine Equation(2020) to estimate GFR. Anion Gap 13 5-15 BUN/Creat Ratio 10.6 12.0-20.0 % LOW Calcium 7.8 8.7-10.4 MG/DL LOW CBC w\o Diff 59302 (Not yet reviewed by provider) Interpretation: Performing Lab: Notes/Report: 4420 @ 2253 4420 @ 2253 WBC 5.7 4.5-11.0 X10'3 RBC 2.28 4.00-5.20 X10'6 LOW Hgb 7.0 12.0-16.0 G/DL LOW Hct 22.2 36.0-46.0 % LOW MCV 97.4 80.0-100.0 FL MCH 30.7 27.0-31.0 PG MCHC 31.5 31.0-37.0 G/DL Platelet 120 150-400 X10'3 LOW RDW-SD 52.2 35.0-49.0 FL HI RDW-CV 14.7 12.2-15.6 % MPV 11.0 9.2-12.0 FL [facility]-46469,66395 Reviewed date:08/11/2025 05:18:02 PM Interpretation: Performing Lab: Notes/Report: BB ABORh Interp A NEG Unknown Crossmatch--00565 (Not yet r eviewed by provider) Interpretation: Performing Lab: Notes/Report: 4420 @ 2253 4420 @ 2253 Blood Bank ID [id number] Unknown Blood Product Notification hold Unknown IS 0+ XM Interp Compatible CBC w\o Diff 60905 (Not yet reviewed by provider) Interpretation: Performing Lab: Notes/Report: 4420 @ 2253 4420 @ 2253 WBC 5.0 4.5-11.0 X10'3 RBC 3.19 4.00-5.20 X10'6 LOW Hgb 9.8 12.0-16.0 G/DL LOW Hct 31.2 36.0-46.0 % LOW MCV 97.8 80.0-100.0 FL MCH 30.7 27.0-31.0 PG MCHC 31.4 31.0-37.0 G/DL Platelet 159 150-400 X10'3 RDW-SD 46.1 35.0-49.0 FL RDW-CV 12.7 12.2-15.6 % MPV 10.5 9.2-12.0 FL PRBC-LR--P9016 (Not yet revi ewed by provider) Interpretation: Performing Lab: Notes/Report: 4420 @ 2253 4420 @ 2253 Number of Units 1 NA Product Type Blood Product NA Chest PA/Lat-15959 Reviewed date:08/11/2025 05:18:07 PM Interpretation: Performing Lab: Notes/Report: See Below For Report Chest PA/Lat Diagnosis Description: Essential (primary) hypertension Read See Below For Report Schedule Confirmation Reviewed date:07/04/2025 11:20:15 AM Interpretation: Performing Lab: Notes/Report: CTA AFRO w/ + w/o Contrast PTT-Heparin--NO CPT (Not yet reviewed by provider) Interpretation: Performing Lab: Notes/Report: 4420 @ 2253 4420 @ 2253 PTT 65.2 22.6-31.8 SEC HI Therapeutic Range: 60-100. Critical Value Starting at > 100. Heparin Xa 0.62 NA ACCP recommendation for therapeutic dosage (Unfractionated heparin)*: 0.3 A? 0.7 IU/mL ACCP recommendation for target peak concentration (low molecular weight heparin)*: 0.60 A? 1.00 IU/mL *Refer to the recommendations made by the specific heparin sanitarian for heparin activity Treatment with direct oral anticoagulants which inhibit Factor Xa (apixaban (Eliquis), rivaroxaban (Xarelto), etc.) may cause results to be falsely elevated. Results of this assay should always be interpreted in conjunction with the patientA?s medical history. NM Lexiscan Cardiolite-85876 Reviewed date:05/30/2025 02:15:54 PM Interpretation: Performing Lab: Notes/Report: qus=[id number]&org=iSite Schedule Confirmation Reviewed date:08/11/2025 05:18:02 PM Interpretation: Performing Lab: Notes/Report: Iliac Angiogram poss [employer] WHIPPER&Stent Antibody Screen 21701 Reviewed date:08/11/2025 05:18:02 PM Interpretation: Performing Lab: Notes/Report: Blood Bank ID [id number] Unknown ABSC Interp Negative ABORh 09391, 66462 Reviewed date:08/11/2025 05:18:02 PM Interpretation: Performing Lab: Notes/Report: ABO/Rh Interp A NEG Unknown Schedule Confirmation Reviewed date:05/10/2025 02:31:22 PM Interpretation: Performing Lab: Notes/Report: NM Lexiscan Cardiolite-39277 Reviewed date:05/12/2025 10:33:54 AM Interpretation: Performing Lab: Notes/Report: See Below For Report NM Lexiscan Cardiolite 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 Basic Metabolic Panel (BMP) 15214 Reviewed date:08/11/2025 05:18:07 PM Interpretation: Performing Lab: Notes/Report: Diagnosis Description: Encounter for other preprocedural examination Diagnosis Description: Atherosclerosis of [place] arteries of extremities with rest pain, unspecified extremity Diagnosis Description: Other iron deficiency anemias Diagnosis Description: Mixed hyperlipidemia Diagnosis Description: Essential (primary) hypertension Sodium 139 136-145 MMOL/L Potassium 4.7 3.5-5.1 MMOL/L Chloride 106 98-107 MMOL/L CO2 25.9 20.0-31.0 MMOL/L Glucose Serum 79 71-110 MG/DL Testing p erformed at [facility], [address] [place] [address] [place] [address]. CLIA ID#: [id number] BUN 21 7-21 MG/DL Creat 1.83 .51-1.17 MG/DL HI K-mllqlk-y-benzoquino ne imine (NAPQI) is a metabolite of acetaminophen, NAPQI concentrations of apparoximately 10 mg/L correlation to toxic levels of acetaminophen demonstrates a greater than or equil to 10% change in results. NAPQI concentrations greater than this may lead to falsely depressed results for patient samples. Use of this assay is not recommended for patients undergoing treatment with phenindione, due to the potential for falsely depressed results. GFR 29.1 NA Calculation pe rformed from GFR calculator provided by the National Kidney Foundation. Glomerular Filtration rate(GRF) is the best overall index of kidney function. Normal GFR varies according to age,sex, body size, and declines with age. The National Kidney Foundation recommends using the CKD-EPI Creatinine Equation(2020) to estimate GFR. Anion Gap 12 5-15 BUN/Creat Ratio 11.5 12.0-20.0 % LOW Calcium 9.1 8.7-10.4 MG/DL Osmo Serum,Calculated 290 280-300 MOSM/KG ZZZIliac Angiogram poss [employer] Reviewed date:08/11/2025 05:18:02 PM Interpretation: Performing Lab: Notes/Report: wqd=[id number]&org=iSite Schedule Confirmation Reviewed date:07/25/2025 12:15:13 PM Interpretation: Performing Lab: Notes/Report: Iliac Angiogram poss [employer] WHIPPER&Stent Schedule Confirmation Reviewed date:07/25/2025 12:15:13 PM Interpretation: Performing Lab: Notes/Report: Iliac Angiogram poss [employer] WHIP[employer]&Stent Crossmatch--22242 (Not yet r eviewed by provider) Interpretation: Performing Lab: Notes/Report: 4420 @ 2253 4420 @ 2253 Blood Bank ID [id number] Unknown Blood Product Notification hold Unknown IS 0+ XM Interp Compatible IS 0+ XM Interp Compatible Chest 1V (Not yet reviewed b y provider) Interpretation: Performing Lab: Notes/Report: See Below For Report Chest 1V 4420 @ 2253 Read See Below For Report WBC Auto Diff--93171 Reviewed date:08/11/2025 05:18:07 PM Interpretation: Performing Lab: Notes/Report: Added by Discern Rules Neutro Auto% 71.6 40.0-70.0 % HI Lymph Auto% 18.8 22.0-44.0 % LOW Upton Auto% 5.6 3.0-7.0 % Eos Auto% 3.4 2.0-4.0 % Baso Auto% 0.4 0.0-1.0 % NRBC% .00 .00-.20 /100 intact WBC's Neutro Abs 3.96 .80-7.70 Absolute Neutrophil Count 3960 NA Lymph Abs 1.04 .10-4.10 Upton Abs .31 .20-1.00 Eos Abs .19 .00-.40 Baso Abs .02 .00-.20 NRBC# .00 .00-.20 X10'3 Imm Gran Abs .01 .00-.10 Imm Gran% .2 .0-.4 % CBC Reflex Man Diff 94168, 8 5007 Reviewed date:08/11/2025 05:18:07 PM Interpretation: Performing Lab: Notes/Report: Diagnosis Description: Encounter for other preprocedural examination Diagnosis Description: Atherosclerosis of [place] arteries of extremities with rest pain, unspecified extremity Diagnosis Description: Other iron deficiency anemias Diagnosis Description: Mixed hyperlipidemia Diagnosis Description: Essential (primary) hypertension WBC 5.5 4.5-11.0 X10'3 RBC 3.74 4.00-5.20 X10'6 LOW Hgb 11.5 12.0-16.0 G/DL LOW Hct 36.9 36.0-46.0 % MCV 98.7 80.0-100.0 FL MCH 30.7 27.0-31.0 PG MCHC 31.2 31.0-37.0 G/DL Platelet 199 150-400 X10'3 RDW-SD 46.2 35.0-49.0 FL RDW-CV 12.6 12.2-15.6 % MPV 10.8 9.2-12.0 FL Review Auto Diff Conf Schedule Confirmation Reviewed date:05/10/2025 02:31:43 PM Interpretation: Performing Lab: Notes/Report: NM Lexiscan Cardiolite [id number]-[id number]-[id number] Reviewed date:07/19/2025 05:05:04 PM Interpretation: Performing Lab: Notes/Report: POCT- Creat 1.81 .57-1.17 mg/dl HI POCT- BUN 24 7-21 mg/dl HI Schedule Confirmation Reviewed date:05/10/2025 02:31:18 PM Interpretation: Performing Lab: Notes/Report: Schedule Confirmation Reviewed date:05/10/2025 02:31:33 PM Interpretation: Performing Lab: Notes/Report: Stress, Lexiscan Cardiolite- 72379 Reviewed date:05/10/2025 02:19:55 PM Interpretation: Performing Lab: Notes/Report: ZZZIliac Angiogram poss [employer]IP[employer] Reviewed date:08/11/2025 05:17:57 PM Interpretation: Performing Lab: Notes/Report: See Below For Report This report was dictated outside of the [employer] system. Read See Below For Report US Doppler Scan Arterial LE Bilat-27632 Reviewed date:05/30/2025 02:15:55 PM Interpretation: Performing Lab: Notes/Report: sjv=[id number]&org=iSite US Carotid Doppler Bilateral -89610 Reviewed date:05/30/2025 02:15:55 PM Interpretation: Performing Lab: Notes/Report: jdm=[id number]&org=iSite Reason For Referral Reason Bad PVD Diagnosis 1 PVD (peripheral vasc ular disease) (I73.9) Referral Organization [facility] Referring Provider First Name Eric thorpe Referring Provider Last Name Orlin Referring Provider Speciality Internal M edicine Referred Organization [facility] Referred Provider Mahesh García Referred Address [address] [place] [address] [address],[place],[address],[place] Referred Provider Specialty Vascular Alison justine General Notes Sherrell Walters 11:52:38 AM CDT > faxed Nacho Mondragon Heidi 06/07/2025 04:22:53 PM CDT > PER FAX PT IS SCHEDULED 06/28Sandi Valerie 06/28/2025 04:38:39 PM CDT > Pt notes are in under encounters Referral Priority Routine Referral Appointment Date 06/28/2025 Reason referral for Bad PVD . May 04, 2025 US BLE: occlusion of bilateral SFA and elevated velocity of the left common femoral artery is compatible w/ stenosis Diagnosis 1 PVD (peripheral vasc ular disease) (I73.9) Referral Organization [facility] Referring Provider First Name Eric thorpe Referring Provider Last Name Orlin Referring Provider Speciality Internal M edicine Referred Organization [facility] Referred Provider Mahesh García Referred Address [address] [place] [address] [address],[place], [place],[address], Referred Provider Specialty Vascular Alison justine General Notes Lani Gonzalez LP N 06/06/2025 12:39:54 PM CDT > testing in , please schedule with Mick Mondragon Brittany M 06/07/2025 04:08:45 PM CDT > Appointment scheduled on 06.28 @ 10:30 Referral Priority Routine Medications Medication SIG (Take, Route, Frequency, Duration) Notes Start Date End Date Status Aspirin 81 81 MG Tablet Delayed Release 1 tablet Orally Once a day Active HYDROcodone-Acetaminophen 5-325 MG Tablet TAKE ONE TABLET BY MOUTH EVERY 6 HOURS NEEDED FOR 30 DAYS; Duration: 09/01/2025 Active Vitamin B12 TR 2000 MCG Tablet Extended Release 1 tablet Orally Once a day Active Zolpidem Tartrate 10 mg Tablet TAKE ONE TABLET BY MOUTH At Bedtime FOR 30 DAYS; Duration: 07/12/2025 Active ProAir HFA 108 (90 Base) MCG/ACT Aerosol Solution 1 puff as needed Inhalation every 4 hrs; Duration: 90 days Active Primidone 50 MG Tablet 1 tablet Orally O nce a day Active Labetalol HCl 100 MG Tablet 1 tablet Orally Twice a day; Duration: 90 days Active Furosemide 20 MG Tablet 1 tablet Orally Once a day; Duration: 30 day(s) 09/22/2025 10/22/2025 Active Omeprazole 20 MG Capsule Delayed Release 1 capsule 30 minutes before morning meal Orally Once a day; Duration: 90 days Active Crestor 40 MG Tablet TAKE ONE TABLET BY MOUTH EVERY DAY; Duration: 90 Active Clopidogrel Bisulfate 75 MG Tablet 1 tablet Orally Once a day; Duration: 90 days Active Ferrous Gluconate 324 (38 Fe) MG [...] Once a day; Duration: 90 days Active Immunizations Vaccine Route Administration Date Status Comme nts Fluzone High Dose, Syringe, 0.5mL, PF IM Intramuscular 09/08/2025 Administered Social History Tobacco Use: Social History Observation Description Date Details (start date - stop date) Current Smoker NA - NA Social History Depression Screening Social Info Question Answer Notes depression screening findings Findings Negative (0-4) Completed 04/20/25 PHQ-9 Little interest or pleasure in doing things Not at all Feeling down, depressed, or hopeless Not at all Trouble falling or staying asleep, or sleeping t oo much Not at all Feeling tired or having little energy Several da ys Poor appetite or overeating Not at all Feeling bad about yourself, or that you are a failure, or have let yourself or your family down Not at all Trouble concentrating on thi ngs, such as reading the newspaper or watching television Not at all Moving or speaking so slowly that other people could have noticed. Or the opposite ? being so fidgety or restless that you have been moving around a lot more than usual Not at all Thoughts that you would be b ne off , or of hurting yourself in some way Not at all Total Score 1 Interpretation Minimal Depression Drugs/Alcohol: Social Info Question Answer Notes Caffeine Intake: 1-2 cups per day Tobacco Use: Social Info Question Answer Notes Tobacco Control (Standard) Tobacco use: Current smoker How often do you smoke cigarettes? Every day How many cigarettes a day do you smoke? 21-30 Additional Details Category Social Info Options Details Drugs/Alcohol: Do you smoke marijuana? De nies Do you drink alcohol? No Section Notes: PHQ9 - 09/07/24 PHQ9 - 09/07/24 Tob - 09/07/24 PHQ9 - 09/07/24 Tob - 09/07/24 CIME Dep/Tob 04/20/25 PHQ9 - 09/07/24 Tob - 09/07/24 CIME Dep/Tob 04/20/25 PHQ9 - 09/07/24 Tob - 09/07/24 CIME Dep/Tob 04/20/25 Smoked for about 40+ years PHQ9 - 09/07/24 Tob - 09/07/24 CIME Dep/Tob 04/20/25 Smoked for about 40+ years PHQ9 - 09/07/24 Tob - 09/07/24 CIME Dep/Tob 04/20/25 Smoked for about 40+ years PHQ9 - 09/07/24 Tob - 09/07/24 CIME Dep/Tob 04/20/25 Smoked for about 40+ years PHQ9 09/07/24 Tob - 09/07/24 CIME Dep/Tob 04/20/25 Problems Problem Type SNOMED Code ICD Code Onset Dates Problem Status W/U Status Risk Notes Problem Mixed hyperlipidemia (379140022) Mixed hyperlipidemia (E78.2) Active confirmed Problem Stenosis of vascular prosthetic devices, implants and grafts, 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 Problem Iron deficiency anemia (62882243) Other iron deficiency anemia (D50.8) Active confirmed Problem Essential hypertension (07423216) Essential hypertension (I10) Active confirmed Problem Atherosclerotic heart disease of [place] coronary artery without angina pectoris (916775611941204) Coronary artery disease involving [place] coronary artery of [place] heart without angina pectoris (I25.10) Active confirmed Problem Restless legs (21581445) Restless legs syndrome (RLS) (G25.81) Active confirmed Problem Peripheral vascular disease (888630155) PVD (peripheral vascular disease) (I73.9) Active confirmed Problem Tobacco abuse (4740943413) Tobacco abuse (Z72.0) Active confirmed Problem Peripheral vascular disease (711732287) PAD (peripheral artery disease) (I73.9) Active confirmed Problem Lumbar radiculopathy (733300611) Lumbar back pain with radiculopathy affecting left lower extremity (M54.16) Active confirmed Problem Right carotid artery stenosis (226398874968791) Carotid occlusion, right (I65.21) Active confirmed Problem 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) Active confirmed Problem Critical limb ischemia of left lower extremity (I70.222) Active confirmed Problem Pain at rest due to peripheral vascular disease (disorder) (259953861) 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 (I70.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) Active confirmed Vital Signs Heart Rate 46 /min 09/22/2025 Temperature 98.0 degrees Fahrenheit 09/22/2025 Blood pressure diastolic 54 mm Hg 09/22/2025 Oximetry 97 % 09/22/2025 Height-cm 157.48 cm 09/22/2025 Weight-kg 61.69 kg 09/22/2025 Height 62 in 09/22/2025 Blood pressure systolic 110 mm Hg 09/22/2025 Weight 136 lbs 09/22/2025 BMI 24.87 kg/m2 09/22/2025 Encounters Encounter Location Date Provider Diagnosis [facility] [address] [place] [id number] 09/22/2025 Omar Ordaz PVD (peripheral vascular disease) I73.9 ; Coronary artery disease involving [place] coronary artery of [place] heart without angina pectoris I25.10 ; Essential hypertension I10 and Lumbar back pain with radiculopathy affecting left lower extremity M54.16 [facility] [address] [address] 09/08/2025 Omar Ordaz Coronary artery disease involving [place] coronary artery of [place] heart without angina pectoris I25.10 ; PVD (peripheral vascular disease) I73.9 and Encounter for immunization Z23 [facility] [address] [place] [address] 07/19/2025 Mahesh García 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 [facility] [address] [address] 06/06/2025 Omar Ordaz PVD (peripheral vascular disease) I73.9 [facility] [address] [address] 04/28/2025 Omar Ordaz Coronary artery disease involving [place] coronary artery of [place] heart without angina pectoris I25.10 ; PVD (peripheral vascular disease) I73.9 and Lumbar back pain with radiculopathy affecting left lower extremity M54.16 [facility] [address] [address] 12/09/2024 Omar Ordaz Coronary artery disease involving [place] coronary artery of [place] heart without angina pectoris I25.10 ; PVD (peripheral vascular disease) I73.9 ; Cigarette smoker F17.210 and Tobacco abuse Z72.0 [facility] [address] [place] [address] 06/28/2025 Mahesh García 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 and Carotid occlusion, right I65.21 [facility] [address] [address] 04/20/2025 Omar Ordaz Acute diffuse otitis externa of left ear H60.312 ; Depression screen Z13.31 and Tobacco abuse Z72.0 [facility] [address] [place] [address] 08/08/2025 Mahesh García [facility] [address] [address] 04/18/2025 Omar Ordaz [facility] [address] [address] 03/14/2025 Omar Ordaz [facility] [address] [address] 03/01/2025 Omar Ordaz [facility] [address] [place] [address] 02/11/2025 Omar Ordaz [facility] [address] [address] 02/09/2025 Omar Ordaz [facility] [address] [address] 02/09/2025 Omar [facility] [address] [place] [address] 01/26/2025 Omar Ordaz [facility] [address] [place] [address] 01/07/2025 [facility] [address] [facility] [address] [place] [address] 01/04/2025 Omar Ordaz [facility] [address] [facility] [address] [place] [address] 12/09/2024 [facility] [address] [facility] [address] [place] [address] 12/09/2024 Omar Ordaz Other iron deficiency anemia D50.8 [facility] [address] [facility] [address] [place] [address] 11/09/2024 [facility] [address] [place] [address] 09/20/2025 [facility] [address] [place] [address] 09/01/2025 Mahesh García [facility] [address] [place] [address] 08/30/2025 Omar [facility] [address] [place] [address] 07/19/2025 Mahesh García Essential hypertensi on I10 ; Mixed hyperlipidemia E78.2 ; Other iron deficiency anemia D50.8 ; 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 and Preprocedural examination Z01.818 [facility] [address] [place] [address] 07/12/2025 [facility] 277 [facility] [address] [place] [address] 06/29/2025 [facility] [address] [place] [address] 06/28/2025 Mahesh García 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 [facility] [address] [facility] 2 [place] [address] 06/14/2025 Omar Ordaz [facility] [address] [facility] [address] [place] [address] 05/19/2025 Jamarlane Ordaz Assessments Encounter Date Diagnosis (ICD Code) Assessment Notes Treatment Notes Treatment Clinical Notes Section Notes 09/22/2025 Coronary artery disease involving [place] coronary artery of [place] heart without angina pectoris (ICD-10 - I25.10) 09/22/2025 PVD (peripheral vascular disease) (ICD-10 - I73.9) She claims that her wound from her recent angiogram is leaking. I have no recourse. I will try and get her in to see Vascular soon. 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 The proximal abdominal aorta is patent. Celiac and SMA are diseased but patent with mild stenosis. Bilateral renal arteries are patent with moderate disease. The mid infrarenal abdominal aorta is occluded. There is an end to side anastomosis of an aortobifemoral bypass graft. There is a weblike stenosis at the origin of the right iliac limb. Both iliac limbs are then widely patent down to almost the inguinal ligament where there is a very severe stenosis bilaterally. Both common femoral arteries are widely patent as are the profunda arteries. SFA is occluded bilaterally. Femoropopliteal bypass graft on the left is occluded. Reconstitution of the above-knee popliteal artery bilaterally with three-vessel runoff to the foot bilaterally. Recommend treating her inflow disease first. I think that I can treat both iliac arteries from a left femoral stick. If this is not feasible then she will need a brachial artery stick. The patient understands the benefits and risks of the procedure including the risk of bleeding, infection, arterial injury/thrombosis, and renal failure. The patient gives consent for surgery. 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 Right internal carotid artery is occluded. Less than 40% stenosis left internal carotid artery. Vertebral flow is antegrade bilaterally. Continue with yearly ultrasound for surveillance. 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 Monophasic flow throughout both lower extremities consistent with inflow disease and outflow disease. Evidence of right common femoral artery stenosis and bilateral SFA occlusion. STEPHEN with waveform: 0.56 on the right with monophasic waveforms with brisk upstroke 0.48 on the left with monophasic waveforms with blunted upstroke. Findings are consistent with moderate to severe atherosclerosis bilateral lower extremities. Lifestyle limiting claudication and mild rest pain bilateral lower extremities. With her extensive past surgical vascular history we will evaluate further with CTA Afro with follow-up. 04/28/2025 Coronary artery disease involving [place] coronary artery of [place] heart without angina pectoris (ICD-10 - I25.10) 04/20/2025 Acute diffuse otitis externa of left ear (ICD-10 - H60.312) 09/08/2025 Coronary artery disease involving [place] coronary artery of [place] heart without angina pectoris (ICD-10 - I25.10) All patient's questions are encouraged and addressed to their apparent satisfaction. They are agreeable with the proposed plan of care and deny further needs or concerns. Patient is advised to take medications as prescribed. Patient agrees to contact the clinic with any new, worsening or increase of symptons. I am happy to see patient prior to next office visit as needed for acute concerns. 09/08/2025 PVD (peripheral vascular disease) (ICD-10 - I73.9) 12/09/2024 Coronary artery disease involving [place] coronary artery of [place] heart without angina pectoris (ICD-10 - I25.10) 12/09/2024 PVD (peripheral vascular disease) (ICD-10 - I73.9) 06/06/2025 PVD (peripheral vascular disease) (ICD-10 - I73.9) 12/09/2024 Other iron deficiency anemia (ICD-10 - D50.8) 12/09/2024 Cigarette smoker (ICD-10 - F17.210) 09/08/2025 Encounter for immunization (ICD-10 - Z23) Give Flu vaccine as directed per provider. Instructed patient that soreness, redness and swelling where the shot is given, fever, muscle aches, and headache can happen after influenza vaccination. An allergic reaction could occur after the vaccinated person leaves the clinic. If you see signs of a severe allergic reaction (hives, swelling of the face and throat, difficulty breathing, a fast heartbeat, dizziness, or weakness), call 9-1-1 and get to the nearest hospital. 04/20/2025 Depression screen (ICD-10 - Z13.31) 04/28/2025 PVD (peripheral vascular disease) (ICD-10 - I73.9) 07/19/2025 Mixed hyperlipidemia (ICD-10 - E78.2) 09/22/2025 Essential hypertension (ICD-10 - I10) 09/22/2025 Lumbar back pain with radiculopathy affecting left lower extremity (ICD-10 - M54.16) 07/19/2025 Other iron deficiency anemia (ICD-10 - D50.8) 04/28/2025 Lumbar back pain with radiculopathy affecting left lower extremity (ICD-10 - M54.16) 04/20/2025 Tobacco abuse (ICD-10 - Z72.0) She is warned that ear infections are more common in smokers. 12/09/2024 Tobacco abuse (ICD-10 - Z72.0) I spent 3 minutes on tobacco cessation counseling. Patient is not willing to attempt cessation. I will continue to estate planning counselor and educate patient in future appointments about the harm and risks of tobacco abuse. I have discussed different medication options with patient today including chantix, wellbutrin, patches, gum and the process of slowly cutting back on nicotine. 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 (ICD-10 - I70.229) 07/19/2025 Preprocedural examination (ICD-10 - Z01.818) Plan Of Treatment Pending Test Test Name Order Date Basic Metabolic Panel (BMP) 89909 2024 Basic Metabolic Panel (BMP) 31441 2024 Basic Metabolic Panel (BMP) 45363 2024 Blood Urea Nitrogen (BUN) 22845 06/28/20 25 Creatinine (B) 45810 06/28/2025 CBC Reflex Man Diff 03290, 32802 025 CBC w\o Diff 39433 09/18/2025 CBC w\o Diff 33079 09/17/2025 CBC w\o Diff 43264 09/16/2025 CBC w\o Diff 08921 09/16/2025 CTA AFRO w/ + w/o Contrast-31429 025 Chest 1V 09/15/2025 Electrocardiogram 12 Lead Tracing-70398 07/19/2025 PRBC-LR--P9016 09/18/2025 PRBC-LR--P9016 09/17/2025 Crossmatch--51598 09/15/2025 Crossmatch--91106 09/15/2025 PTT-Heparin--NO CPT 09/16/2025 PTT-Heparin--NO CPT 09/16/2025 Next Appt Details Provider Name:Alexys reddy, 10/03/2025 01:15:00 PM, [address] [place] [address] [place] [place], [place], [address], Provider Name:Omar Ordaz, 10/05/2025 01:20:00 PM, [address] [place] [address] [place] [address], [address], Provider Name:Omar Ordaz, 01/04/2026 01:20:00 PM, [address], [address], Provider Name:Mahesh carmona, 07/03/2026 12:30:00 PM, [address] [place] [address] [place] [place], [place], [address], Provider Name:Linn bradley, 07/03/2026 01:15:00 PM, [address] [place] [address] [place] [place], [place], [address], Insurance Providers Payer Name Payer Address Payer Phone Subscriber Number Group Number Insured Name Patient Relationship to Insured Coverage Start Date Coverage End Date [place] [address] [place] [phone] [id number] Martita Spencer Self - patient is the insured [facility] [address] [address] [place] [address] Martita Spencer Self - patient is the insured Medications Administered Medication Instructions Date of Administration Dosage Notes Furosemide 40mg 09/22/2025 Medical (General) History Medical History History ICD Code Coronary artery disease I25.10 Tremors Surgical History Surgery Date(Month/Year) stent in heart stent in carodid stents in left leg
--- NOTE | 2025-10-01 08:26 | USR_ITS ---
PROCEDURE INFORMATION: Exam: US Duplex Left Lower Extremity Arteries Or Arterial Bypass Grafts Exam date and time: 10/01/2025 9:28 AM Age: 70 years old Clinical indication: Other: Bleeding post femoral endarterectomy; Prior surgery; Surgery date: <1 month; Surgery type: Unsure of dates, but recent endarterectomy of the left femoral; Additional info: Femoral endarterectomy with pain and swelling and bleeding TECHNIQUE: Imaging protocol: Left Real-time duplex scan of the arteries or arterial bypass grafts of the left lower extremity with 2-D whitley scale, color Doppler flow and spectral waveform analysis. Images documented and saved. COMPARISON: No relevant prior studies available. FINDINGS: Left common femoral artery: Patient had recent femoral endarterectomy. Within the left groin, the common femoral artery does appear to be visualized. There is a 6.3 x 3.6 x 4.2 cm isoechoic with heterogeneous echotexture structure within the groin with no internal flow on color Doppler. US/[place] [address] IMPRESSION: 1. Nonvisualization of the left common femoral artery. 2. A 6.3 cm left groin heterogeneous echotexture structure that might represent thrombosed aneurysm versus hematoma. No internal flow on color Doppler.
--- NOTE | 2025-10-01 08:36 | W.ED.GENADLT ---
HPI - General Adult General: Chief complaint: Wound/Laceration Stated complaint: bleeding at surg site Time Seen by Provider: 10/01/25 08:19 History of Present Illness: 70-year-old female with a history of peripheral vascular disease with recent femoral endarterectomy, essential tremor, carotid artery disease, and lumbar stenosis who presents to the emergency room with pain in her left groin, some bleeding from surgical site and swelling that she thinks may be new. This happened this morning when she got up. She said she had blood running down her leg. Bleeding now appears to have improved but she is quite tender and does have a swelling in her left groin. Related Data Home Medications ?Medication ?Instructions ?Recorded ?Confirmed aspirin 81 mg capsule 81 mg PO DAILY 02/20/23 10/14/23 clopidogrel 75 mg tablet (Plavix) 75 mg PO DAILY 02/20/23 10/14/23 albuterol sulfate 90 mcg/actuation 1 inh inhalation QID PRN Shortness 02/28/23 10/14/23 aerosol inhaler Of Breath citalopram 40 mg tablet 20 mg PO DAILY 02/28/23 10/14/23 hydrocodone 5 mg-acetaminophen 325 1 tab PO Q6H PRN Pain 02/28/23 10/14/23 mg tablet labetalol 200 mg tablet 200 mg PO DAILY 02/28/23 10/14/23 omeprazole 20 mg capsule,delayed 20 mg PO DAILY 02/28/23 10/14/23 release rosuvastatin 40 mg tablet 40 mg PO DAILY 02/28/23 10/14/23 zolpidem 10 mg tablet 10 mg PO DAILY 02/28/23 10/14/23 ferrous gluconate 324 mg (38 mg mg PO 10/14/23 10/14/23 iron) tablet Previous Rx's ?Medication ?Instructions ?Recorded hydrocodone 5 mg-acetaminophen 325 1 - 2 tab PO .Q4-6H #40 tabs 03/07/23 mg tablet cyclobenzaprine 5 mg tablet 5 mg PO TID PRN muscle spasm #30 04/22/23 tabs prednisone 20 mg tablet 20 mg PO DAILY #15 tabs 04/22/23 primidone 50 mg tablet 50 mg PO BID 1 month #60 tabs 10/14/23 Allergies Allergy/AdvReac Type Severity Reaction Status Date / Time Penicillins Allergy Intermediate ALGY-Hives Verified 10/01/25 08:37 trazodone Allergy ALGY-Hives Verified 10/01/25 08:37 Review of Systems Narrative: Constitutional symptoms: Negative except as documented in HPI. Skin symptoms: Negative except as documented in HPI. Eye symptoms: Negative except as documented in HPI. ENMT symptoms: Negative except as documented in HPI. Respiratory symptoms: Negative except as documented in HPI. Cardiovascular symptoms: Negative except as documented in HPI. Gastrointestinal symptoms: Negative except as documented in HPI. Genitourinary symptoms: Negative except as documented in HPI. Musculoskeletal symptoms: Negative except as documented in HPI. Neurologic symptoms: Negative except as documented in HPI. Psychiatric symptoms: Negative except as documented in HPI. Endocrine symptoms: Negative except as documented in HPI. Physical Exam Narrative: EXAM NARRATIVE: General: Alert, no acute distress. Skin: warm and dry Head: Normocephalic Neck: Trachea midline Eye: Extraocular movements are intact. Ears, nose, mouth and throat: Oral mucosa moist Respiratory: Respirations are non-labored Musculoskeletal: Normal ROM. Left groin there is slight defect in incision site. Bleeding is controlled. There is a swelling under this that is very tender. Gastrointestinal: Abdomen does not appear distended Neurological: Alert and oriented, No focal neurological deficit observed. Psychiatric: Cooperative, appropriate mood & affect. Course Vital Signs: Vital signs: Vital Signs Temperature 98.3 F 10/01/25 08:19 Pulse Rate 80 10/01/25 09:37 Respiratory Rate 20 H 10/01/25 09:37 Blood Pressure 218/99 10/01/25 09:37 Pulse Oximetry 97 10/01/25 09:37 Oxygen Delivery Me thod Room Air 10/01/25 08:19 MDM - General Adult Medical Decision Making Medical decision making Patient's reason for coming to the emergency room: Groin pain Social determinants: Patient is retired. She has a family member present. Her daughter presented I reviewed the patient's medical record. Patient has not followed here since September 2023. She saw Dr. Lockett with neurology at that time. Before that she had seen orthopedics. 70-year-old female with a history of peripheral vascular disease with recent femoral endarterectomy, essential tremor, carotid artery disease, and lumbar stenosis. I reviewed the patient's current home meds Patient says she is still on Plavix. No other anticoagulation. Alternate historians: Daughter is present and gives some history as well Differential diagnosis: including but not limited to and based on the above HPI, review of systems and physical exam: In this patient with recent groin catheterization with concern for pseudoaneurysm versus hematoma. Also would have concern for anemia and coagulopathy. Orders placed to evaluate differential diagnosis based on the above differential, HPI and physical exam Ultrasound: I discussed findings of ultrasound with the blood bank technician. She does see a large hematoma and only sees flow in the artery and does not see active extravasation into this hematoma. However she does continue to have bleeding out of the incision site. Lab Review: Laboratory results were reviewed and interpreted by myself the emergency room physician. No leukocytosis. Mild anemia with hemoglobin 9.8. BUN/creatinine are 12 and 1.6. Assessment of risk: Level of risk: High risk patient. Multiple comorbidities. Recent surgery. Now with a possible surgical complication Hospitalization considerations: Patient is being transferred to [facility] for evaluation in the emergency room and by her vascular surgeon Reexamination: Patient still pretty hypertensive although her pressure did improve some with Dilaudid. Can give some hydralazine. I discussed findings with her and her family. No oxygen requirements. No altered mental status. Consultation: I spoke with Dr. June who is the patient's vascular surgeon. He request transfer to the emergency room with type and screen of 3 units and a CTA. Consultation: I spoke with Dr. Hansen in the emergency room and he accepts the patient in transfer ER to ER Assessment and plan: Groin hematoma Active bleeding from surgical site Anemia Renal insufficiency Hypertension ?Dilaudid, hydralazine in the emergency room -I discussed the patient with the accepting physician on-call. - Discussed findings and plan with patient. Answered any questions. - All laboratory values were reviewed and interpreted personally by myself, the ER physician - Evaluation and treatment of this problem were appropriate in the emergency setting Lab Data 10/01/25 08:46 10/01/25 08:46 Laboratory Results WBC 10.76 10^3/uL (3.29-11.43) 10/01/25 08:46 RBC 3.35 10^6/uL (3.85-5.65) L 10/01/25 08:46 Hgb 9.80 g/dL (11.27-16.99) L 10/01/25 08:46 Hct 31.8 % (36-47) L 10/01/25 08:46 MCV 94.9 fl (85-98) 10/01/25 08:46 MCH 29.3 pg (27-33) 10/01/25 08:46 MCHC 30.8 g/dL (30-55) 10/01/25 08:46 RDW 14.9 % (12.1-15.1) 10/01/25 08:46 Plt Count 390 10^3/cmm (157-399) 10/01/25 08:46 MPV 9.5 fL (7.4-10.4) 10/01/25 08:46 Neut % (Auto) 82.3 % 10/01/25 08:46 Lymph % (Auto) 8.4 % 10/01/25 08:46 Van Zandt % (Auto) 5.7 % 10/01/25 08:46 Eos % (Auto) 2.5 % 10/01/25 08:46 Baso % (Auto) 0.4 % 10/01/25 08:46 Neut # (Auto) 8.87 10^3/uL (1.8-7.7) H 10/01/25 08:46 Lymph # (Auto) 0.9 10^3/uL (0.8-4.8) 10/01/25 08:46 [place]andt # (Auto) 0.6 10^3/uL (0.2-0.9) 10/01/25 08:46 Eos # (Auto) 0.3 10^3/uL (0.0-0.8) 10/01/25 08:46 Baso # (Auto) 0.0 10^3/uL (0.0-0.1) 10/01/25 08:46 Nucleated RBC % (auto) 0 % 10/01/25 08:46 Nucleated RBCs # 0.0 /100WBC 10/01/25 08:46 PT 14.60 SECONDS (12.1-14.9) 10/01/25 08:46 INR 1.06 (0.8-1.2) 10/01/25 08:46 APTT 33.0 SECONDS (23.9-36.7) 10/01/25 08:46 Sodium 137 mmol/L (136-145) 10/01/25 08:46 Potassium 3.9 mmol/L (3.5-5.1) 10/01/25 08:46 Chloride 104 mmol/L (98-107) 10/01/25 08:46 Carbon Dioxide 22 mmol/L (22-29) 10/01/25 08:46 Anion Gap 14.9 (5-19) 10/01/25 08:46 BUN 12 mg/dL (8-23) 10/01/25 08:46 Creatinine 1.6 mg/dL (0.5-0.9) H 10/01/25 08:46 GFR Calculation Not Reportable 10/01/25 08:46 Glucose 133 mg/dL (65-115) H 10/01/25 08:46 Calculated Osmolality 286 mOsm/kg (285-295) 10/01/25 08:46 Calcium 8.9 mg/dL (8.5-10.5) 10/01/25 08:46 Total Bilirubin 0.4 mg/dL (0.15-1.2) 10/01/25 08:46 AST 16 U/L (0-32) 10/01/25 08:46 ALT 11 U/L (0-33) 10/01/25 08:46 Alkaline Phosphatase 114 U/L (35-105) H 10/01/25 08:46 Total Protein 6.8 g/dL (6.6-8.7) 10/01/25 08:46 Albumin 3.3 g/dL (3.5-5.2) L 10/01/25 08:46 Globulin 3.5 g/dL (1.3-4.6) 10/01/25 08:46 XR interpretation done by ED provider, pending radiology final review Discharge Plan Discharge Patient Disposition: Xfer Short-Term Hosp Clinical Impression: Hematoma of groin, Post-op bleeding, Accelerated hypertension, Renal insufficiency, Anemia Condition: Stable Referrals: Nirav Ordaz MD [Primary Care Provider, Internal Medicine] Print Language: Bhutanese Coding Level of Care Code ED Home Connect Lpn for Nicole Page
[2025-10-01 08:43] VITALS: PULSE 69; O2SAT 96
[2025-10-01 08:51] LABS: Hematocrit 31.8 % (36-47); Hemoglobin 9.80 g/dL (11.27-16.99); Mean Corpuscular HGB Conc 30.8 g/dL (30-55); Mean Corpuscular Hemoglobin 29.3 pg (27-33); Mean Corpuscular Volume 94.9 fl (85-98); Nucleated Red Blood Cells % 0 %; Platelet Count 390 10^3/cmm (157-399); Red Blood Count 3.35 10^6/uL (3.85-5.65); White Blood Count 10.76 10^3/uL (3.29-11.43)
[2025-10-01 09:07] LABS: INR 1.06 (0.8-1.2); Partial Thromboplastin Time 33.0 SECONDS (23.9-36.7); Prothrombin Time 14.60 SECONDS (12.1-14.9)
[2025-10-01 09:11] LABS: Alanine Aminotransferase 11 U/L (0-33); Albumin Level 3.3 g/dL (3.5-5.2); Alkaline Phosphatase 114 U/L (35-105); Anion Gap 14.9 (5-19); Aspartate Amino Transferase 16 U/L (0-32); Blood Urea Nitrogen 12 mg/dL (8-23); Calcium 8.9 mg/dL (8.5-10.5); Carbon Dioxide 22 mmol/L (22-29); Chloride 104 mmol/L (98-107); Globulin 3.5 g/dL (1.3-4.6); Glucose 133 mg/dL (65-115); Osmolality Calculated 286 mOsm/kg (285-295); Potassium 3.9 mmol/L (3.5-5.1); Sodium 137 mmol/L (136-145); Total Protein 6.8 g/dL (6.6-8.7)
[2025-10-01] MEDS: ondansetron 2 mg/ML SDV 2 mL 4 MG IVP (09:33)
[2025-10-01] MEDS: HYDROmorphone 0.5 MG/0.5 ML INJ 1 MG IVP (09:34)
[2025-10-01 09:37] VITALS: BP 218/99; PULSE 80; RESP 20; O2SAT 97
[2025-10-01 10:00] VITALS: BP 195/95; PULSE 75; O2SAT 95
[2025-10-01] MEDS: hyDRALAzine 20 mg/mL INJ 1 mL IVP (10:09)
[2025-10-01 10:30] VITALS: BP 167/74; PULSE 73; O2SAT 94
[2025-10-01 10:44] VITALS: BP 167/74; PULSE 78; O2SAT 94
== END 2025-10-01 10:58 | disposition short-term general hospital (02) ==
PROVIDERS: Emergency Provider Emergency Medicine; PCP Internal Medicine
DX: L76.22 Postprocedural hemorrhage of skin and subcutaneous tissue following other procedure (principal); L76.32 Postprocedural hematoma of skin and subcutaneous tissue following other procedure; N28.9 Disorder of kidney and ureter, unspecified; I10 Essential (primary) hypertension; D64.9 Anemia, unspecified
CPT/HCPCS: 36415; 80053; 85025; 85610; 85730; 93926; 96374; 96375; 99285; J0360; J1171; J2405